=== PATIENT | male | born 1975 | race Caucasian/White ===

== ENCOUNTER → 2016-10-19 | Outpatient (CLI) | payer OTHER ==
[~2016-10-19] MED LIST: ACET-1256 PO; GLC/500 PO; GLIP-197 PO; HYDR25TA4 PO; LEVO50TA6 PO; LISI40TA PO; NAPR1TAB9 PO; SIMV20TA5 PO
[2016-10-19 09:55] LABS: BLOOD UREA NITROGEN 15 mg/dl (7-18); BUN/CREATININE RATIO 16.5 (10-20); CALCIUM 9.1 mg/dl (8.5-10.1); CARBON DIOXIDE 26 mmol/L (21-32); CHLORIDE 101 mmol/L (98-107); CHOLESTEROL 139 mg/dl (0-200); CREATININE 0.93 mg/dl (0.60-1.40); GLUCOSE 115 mg/dl (70-99); POTASSIUM 4.4 mmol/L (3.5-5.1); SODIUM 134 mmol/L (136-145); TRIGLYCERIDES 90 mg/dl (0-150); VERY LOW DENSITY LIPOPROT CALC 18 mg/dl
[2016-10-19 10:03] LABS: ESTIMATED AVERAGE GLUCOSE 123 mg/dl; HA1C FLAG Normal (Normal)
[2016-10-19 10:06] LABS: CHOLESTEROL/HDL RATIO 3.9; HDL CHOLESTEROL 36 mg/dl; LDL CHOLESTEROL CALCULATED 85 mg/dl
== END | disposition home or self-care (01) ==
LOC: C.LAB 08:18
PROVIDERS: ATTEND Internal Medicine
DX: E11.65 Type 2 diabetes mellitus with hyperglycemia (principal); E03.9 Hypothyroidism, unspecified

== ENCOUNTER 2017-05-01 11:04 | Emergency (ER) | payer OTHER ==
[~2017-05-01] VITALS: Ht 167.6 cm; Wt 132.0 kg
[2017-05-01 11:08] VITALS: TEMP 36.5; Ht 167.6 cm; Wt 132.0 kg
--- NOTE | 2017-05-01 12:02 | DIAGNOSTIC IMAGING REPORT ---
L KNEE 3 VIEWS CLINICAL HISTORY: Left knee pain and swelling. COMPARISON: Left knee radiographs March 19, 2015. FINDINGS: Alignment of the left knee is an anatomic. No fracture or suspicious lesion is identified. A moderate-sized left knee joint effusion is present. Joint spaces are preserved. A few small ossific/calcific densities project posterior to the patella on lateral projection. These measure up to 3 mm. IMPRESSION: 1. No acute fracture. 2. Moderate-sized left knee joint effusion. 3. Preserved joint spaces with mild osteophytosis of the left knee. 3. A few small ossific/calcific densities which project posterior to the patella on lateral projection. These are nonspecific but could reflect tiny joint bodies. Electronically signed by: Lukas Mathias M.D. 05/01/2017 12:00 PM Dictated Date/Time: 05/01/2017 11:58 AM
[2017-05-01] MEDS ORDERED: KETO10TA PO (12:34)
[2017-05-01 12:55] VITALS: BP 144/74; PULSE 79; O2SAT 99
--- NOTE | 2017-05-01 21:10 | EMERGENCY ROOM VISIT NOTE ---
ED Visit Note First contact with patient: 11:19 Chief Complaint: Left knee pain and swelling. History of Present Illness: Mr. Patterson is a 41-year-old white male who ambulates into the ED on crutches complaining of left knee pain and swelling. Historically patient has had bilateral knee pain and swelling for many years. He has been seen in this ED and by keyboard specialist and has had both knees drained and surgery to the right knee over the last couple of years. Patient does report he rides his bike every day for the last 3 years. Patient reports 8 days ago he finished riding his bicycle for exercise and when he was done he reports he was having pain over the back of his patella. He reports he had a doctor's appointment then walked to his doctor's appointment. After returning from his doctor's appointment he reports he has been having constant severe left knee pain for the last 8 days. Currently he is not able to describe this pain but places his discomfort diffusely through the left knee with prominence on the posterior surface area of the patella. He rates his discomfort 10/10. The pain is nonradiating. His pain worsens with weightbearing and ambulation. He has not identified any alleviating factors related to the pain. He has not taken any medications for pain prior to arrival at the hospital. He does feel like his knee is swollen and needs to be drained similar to previous episodes. He denies any associated symptoms including fevers, chills, sweats, skin eruptions, skin color changes, back pain, hip pain, thigh pain, lower leg pain, ankle pain, recent direct trauma, leg weakness/numbness/tingling. Review of Systems: As noted above in history of present illness. 5 body systems were reviewed and found to be negative as noted above. Past Medical History: Obesity, diabetes, hypertension, bipolar disorder, schizoaffective disorder. Current Medications: Medications Dose Route/Sig Max Daily Dose Days Date Category Glucophage (Metformin Hcl) 500 Mg Tab 500 Mg PO BID 11/03/15 Reported Zocor (Simvastatin) 20 Mg Tab 20 Mg PO QPM 03/19/15 Reported Zestril (Lisinopril) 40 Mg Tab 40 Mg PO DAILY 03/19/15 Reported Levothyroxine Sodium 50 Mcg Tab 50 Mcg PO DAILY 03/19/15 Reported Hctz (Hydrochlorothiazide) 25 Mg Tab 25 Mg PO DAILY 03/19/15 Reported Glipizide Er (Glipizide) 5 Mg Tab 5 Mg PO DAILY 90 03/19/15 Reported Allergies to Medications: Patient denies. Social History: Patient is not employed; he feels safe in his home environment; he denies tobacco and alcohol use. Physical Examination: Vital Signs: Date Time Temp Pulse Resp B/P (MAP) Pulse Ox O2 Delivery O2 Flow Rate FiO2 05/01/17 12:55 79 144/74 99 05/01/17 11:08 36.5 82 18 127/79 96 Room Air GENERAL: 41-year-old male in mild distress due to pain, nontoxic-appearing, afebrile and hemodynamically stable. NEUROLOGICAL: Awake, alert and oriented to person, place and time. Answering questions appropriately and following commands. SKIN: Warm, dry and pink. No soft tissue eruptions or trauma noted. LEFT LOWER EXTREMITY: No gross bony deformity. No shortening or malrotation of the extremity. No tenderness over the hip, thigh, lower leg, ankle or foot. Mild tenderness over the anterior aspect over the patella. Positive ballottement test. Negative patellar apprehension test. Negative bounce test. No laxity of the collateral or cruciate ligaments. Difficult to assess the patient's meniscus due to obesity. Full range of motion in flexion and extension of the knee and plantar flexion and dorsiflexion of the ankle against resistance. Throughout the leg the skin was warm and pink and capillary refill is brisk. Distal pulses were intact. Light sensation intact. ED Course: Patient is assessed as noted above per Patient's medication list was reviewed. Left Knee X-Rays: Were read by myself and the radiologist showing no acute fractures or dislocations. Moderate sized left knee joint effusion. Preserved joint spaces with mild osteophytosis. A few small ossific/calcific densities which project posterior to the patella on the lateral projection of questionable etiology. Patient's knee was wrapped in a Caesar bandage. Patient was educated about today's findings and instructed on his treatment plan ; he verbalizes understanding and agreement with this plan. Clinical Impression: Left knee pain. Joint effusion. Disposition: Patient discharged home in stable condition; prior to departure he was reassessed and subjectively reported he was feeling better and rated his discomfort 3/10. Plan: Patient was encouraged use 10 mg of Toradol every 6 hours as needed for pain. Patient is encouraged use ice on areas of pain and swelling 5-6 times a day for 30 minutes. Patient to keep his knee elevated while at rest. Patient is encouraged to use the Caesar bandage and his nonweightbearing crutches until pain-free. Patient was encouraged to follow-up with his keyboard specialist for follow- up care and treatment. Patient was encouraged return ED for worsening/uncontrolled pain, uncontrolled swelling, leg weakness/numbness/tingling, knee redness, fevers or any new/ concerning symptoms.
== END 2017-05-01 12:55 | disposition home or self-care (01) ==
LOC: C.EDB 11:05 → C.EDD 12:55
DX: M25.562 Pain in left knee (principal); M25.462 Effusion, left knee; E66.9 Obesity, unspecified; E11.9 Type 2 diabetes mellitus without complications; I10 Essential (primary) hypertension; Z79.84 Long term (current) use of oral hypoglycemic drugs; Z79.899 Other long term (current) drug therapy

== ENCOUNTER → 2017-05-15 | Outpatient (CLI) | payer OTHER ==
[~2017-05-15] MED LIST changes: -ACET-1256 PO; -NAPR1TAB9 PO
[2017-05-15 10:06] LABS: HEMATOCRIT 42.1 % (42-52); HEMOGLOBIN 14.4 g/dL (14.0-18.0); MEAN CELL VOLUME 83.9 fL (80-100); MEAN CORPUSCULAR HEMOGLOBIN 28.7 pg (25-34); MEAN CORPUSCULAR HGB CONC 34.2 g/dl (32-36); MEAN PLATELET VOLUME 9.8 fL (7.4-10.4); PLATELET COUNT 271 K/uL (130-400); RED CELL DISTRIBUTION WIDTH CV 13.9 % (11.5-14.5); RED CELL DISTRIBUTION WIDTH SD 42.1 fL (36.4-46.3); WHITE BLOOD COUNT 10.69 K/uL (4.8-10.8)
[2017-05-15 10:32] LABS: ALT/SGPT 48 U/L (12-78); AST/SGOT 24 U/L (15-37); BLOOD UREA NITROGEN 13 mg/dl (7-18); CALCIUM 9.4 mg/dl (8.5-10.1); CARBON DIOXIDE 29 mmol/L (21-32); GLUCOSE 96 mg/dl (70-99); POTASSIUM 4.5 mmol/L (3.5-5.1); SODIUM 134 mmol/L (136-145)
[2017-05-15 10:42] LABS: URIC ACID 6.4 mg/dl (2.6-7.2)
== END | disposition home or self-care (01) ==
LOC: C.LAB 08:20
PROVIDERS: ATTEND Internal Medicine
DX: M10.9 Gout, unspecified (principal); E03.9 Hypothyroidism, unspecified; E11.9 Type 2 diabetes mellitus without complications; E78.5 Hyperlipidemia, unspecified